=== PATIENT | female | born 1965 | race Caucasian/White ===

== ENCOUNTER 2021-06-01 09:41 | Outpatient (CLI) | payer MEDICAID, SELFPAY ==
--- NOTE | 2021-06-01 09:48 | MM_ITS ---
WS: [id number] BILATERAL DIGITAL SCREENING MAMMOGRAPHY WITH CAD CLINICAL INFORMATION: SCREENING HISTORY: Screening mammogram. No current complaints. COMPARISON: June 09, 2019 TECHNIQUE: Bilateral CC and MLO views. FINDINGS: The breasts are composed of heterogeneous fibroglandular density tissue, which can limit the detectio n of small underlying mass lesions. No suspicious mass, asymmetry, calcifications, or architectural d istortion. No evidence of malignancy. Punctate and lucent centered calcifications. MM/[place] [id number] IMPRESSION: BI-RADS: 2-Benign FOLLOW UP: 1 Year Follow-up Recommend return to annual screening mammography.
== END 2021-06-01 09:42 | disposition home or self-care (01) ==
LOC: RADSHAW 09:47
PROVIDERS: PCP Family Medicine; Visit Provider Family Medicine
DX: Z12.31 Encounter for screening mammogram for malignant neoplasm of breast (principal)
CPT/HCPCS: 77067

== ENCOUNTER 2021-06-06 08:54 | Outpatient (CLI) | payer MEDICAID, SELFPAY ==
--- NOTE | 2021-06-06 09:05 | CT_ITS ---
WS: [id number] LDCT LUNG CANCER SCREENING TECHNIQUE: Noncontrast CT of the chest with coronal and sagittal reformatted images. CLINICAL INFORMATION: NICOTINE DEPENDENCE, CIGARETTES COMPARISON: None. DLP: 51.81 mGy.cm DIvol: 1.[address] scans at [facility] use at least one of these dose optimization techniques: automat ed exposure control; mA and/or kV adjustment per patient size (includes targeted exams where dose is matched to clinical indication); or iterative reconstruction. FINDINGS: Lungs are well aerated. No acute pulmonary infiltrates. Noncalcified nodule left lower lobe measuring 5 mm. Coronary calcification. No mediastinal or hilar lymphadenopathy. Small esophageal hiatal hernia. Adre nal glands are normal. CT/CT lung screening [id number] IMPRESSION: LUNG-RADS: 3-Probably Benign FOLLOW UP: 6 Month LDCT
== END 2021-06-06 08:55 | disposition home or self-care (01) ==
PROVIDERS: PCP Family Medicine; Visit Provider Family Medicine
DX: Z12.2 Encounter for screening for malignant neoplasm of respiratory organs (principal); F17.210 Nicotine dependence, cigarettes, uncomplicated
CPT/HCPCS: 71271

== ENCOUNTER 2021-07-11 08:50 | Outpatient (CLI) | payer MEDICAID, SELFPAY ==
--- NOTE | 2021-07-11 09:04 | XR_ITS ---
WS: [id number] XR knee RT 3V* [id number] REASON FOR EXAM: RIGHT KNEE PAIN FINDINGS: Mild narrowing of the medial knee joint space without significant subchondral bone abnormality. Mild narrowing of the lateral knee joint space without significant subchondral bone abnormality. Significant narrowing of the patellofemoral joint space with large patellar and femoral condyle osteo phytes. XR/XR knee RT 3V* [id number] IMPRESSION: Osteoarthritis of the right knee, most severe in the patellofemoral joint space .
== END 2021-07-11 08:51 | disposition home or self-care (01) ==
LOC: RAD 08:56
PROVIDERS: PCP Family Medicine; Visit Provider Family Medicine
DX: M17.0 Bilateral primary osteoarthritis of knee (principal)
CPT/HCPCS: 73562

== ENCOUNTER → 2021-08-09 10:37 | Outpatient (BNVA) | payer MEDICAID, SELFPAY | PROVIDERS: PCP Family Medicine; Visit Provider Surgery | DX: Z20.822 Contact with and (suspected) exposure to COVID-19 (principal); Z11.52 Encounter for screening for COVID-19 | CPT/HCPCS: 87635 ==

== ENCOUNTER 2021-08-15 08:01 | Day surgery (SDC) | payer MEDICAID, SELFPAY ==
[2021-08-13 13:40] VITALS: BMI 29.0
--- NOTE | 2021-08-15 08:31 | ANES.PREANE2 ---
Pre-Anesthetic Assessment Pre-Anesthetic Assessment: Height/Weight: Height 1.68 m Weight 81.647 kg Proposed Procedure: Operation Date: 08/15/21 10:15 Proposed Procedures p Colonoscopy 69700 R19.7(Not Applicable) - Everton Johns MD Was Beta Layton taken within 24 hours: Yes Was Clonidine taken within 24 hours: N/A Social: Social History: Tobacco and No alcohol Exam: Pre-Anes Outpt Exam: alert, oriented x 3, clear to auscultation bilaterally and regular rate & rhythm Airway: Submandibular: WNL Cervical ROM: WNL MP: 2 Dentition: False Pulmonary: Pulmonary: Asthma and COPD CV/HEM: CV/HEM: HTN GI: GI: GERD Metabolic: Metabolic: Hyperlipidemia Anesthetic Plan: ASA status: 3 Anesthesia: MAC Risk of > 500 ml blood loss (7ml/kg in children): No PFSH Anesthesia PFSH: Family History Other Cancer Dementia Diabetes Lung disease Denies family history of CAD (coronary artery disease) Chronic kidney disease (CKD) Stroke Social History Smoking and tobacco status: current every day smoker Alcohol intake: never Lives independently: Yes Household members: children Data Anesthesia Cardiac Studies: No Data to Display
[2021-08-15 09:30] VITALS: BP 158/99; PULSE 75; RESP 16; TEMP 36.5; O2SAT 94
[2021-08-15] MEDS: sodium chloride 0.9% 1,000 ML 30 ML IV (09:30)
--- NOTE | 2021-08-15 10:21 | P.HP_ITS ---
Same Day Surgery H&P Indication for Procedure/HPI DATE OF PROCEDURE: August 15, 2021 CHIEF COMPLAINT/INDICATIONFOR SURGICAL PROCEDURE: Diarrhea PREOP DIAGNOSIS: Diarrhea PLANNED PROCEDRUE: Operation Date: 08/15/21 10:15 Proposed Procedures p Colonoscopy 14739 R19.7(Not Applicable) - Everton Johns MD 07/05/2021 This is a pleasant 56 years old female patient reports that she has been having nonbloody diarrhea for the past 6 months or so. Never had a colonoscopy before. She reports no sick contacts or ingestion of unhealthy meals or being on antibiotics or change in medication or recent travels. Patient is referred to my practice for colonoscopy. She reports that she never had her stools analyzed. 08/15/2021 Patient is coming today for colonoscopy ROS All systems have been reviewed negative except as per the above or per problem List Medications/Allergies* Home Medications Medication Instructions Recorded Confirmed Type albuterol sulfate 90 mcg/actuation 1 inh INHALATION QID 07/05/21 08/15/21 History aerosol inhaler alendronate 10 mg tablet 10 mg PO DAILY 07/05/21 08/15/21 History atorvastatin 20 mg tablet 20 mg PO DAILY 07/05/21 08/15/21 History brexpiprazole 3 mg tablet 3 mg PO DAILY 07/05/21 08/15/21 History budesonide-formoterol HFA 160 2 puff INHALATION BID 07/05/21 08/15/21 History mcg-4.5 mcg/actuation aerosol inhaler furosemide 40 mg tablet 40 mg PO DAILY 07/05/21 08/15/21 History gabapentin 600 mg tablet 600 mg PO DAILY 07/05/21 08/15/21 History hydroxyzine HCl 25 mg tablet 25 mg PO BID PRN 07/05/21 08/15/21 History lisinopril 10 mg tablet 20 mg PO DAILY 07/05/21 08/15/21 History metoprolol succinate 50 mg 50 mg PO DAILY 07/05/21 08/15/21 History tablet,extended release 24 hr montelukast 10 mg tablet 10 mg PO DAILY 07/05/21 08/15/21 History pantoprazole 40 mg tablet,delayed 40 mg PO DAILY 07/05/21 08/15/21 History release prazosin 2 mg capsule 2 mg PO BID 07/05/21 08/15/21 History sitagliptin 50 mg-metformin 1,000 1 tab PO BID 07/05/21 08/15/21 History mg tablet tiotropium bromide 2.5 2 puff INHALATION DAILY 07/05/21 08/15/21 History mcg/actuation mist for inhalation trazodone 50 mg tablet 50 mg PO DAILY 07/05/21 08/15/21 History Allergies/Adverse Reactions Allergy/AdvReac Type Severity Reaction Status Date / Time No Known Allergies Allergy Verified 08/15/21 10:22 Current Medications: Generic Name Dose Route Start Last Admin Trade Name Freq PRN Reason Stop Dose Admin Sodium Chloride 1,000 mls @ 30 mls/hr 08/15/21 09:00 08/15/21 09:30 Sodium Chloride 0.9% IV 08/16/21 08:59 30 mls/hr .Q24H CASSANDRA Administration Pertinent History/Comorbid Conditions* Family History (Updated 07/05/21 @ 08:28 by Patria Costa) Diabetes Dementia Lung disease Cancer Denies family history of CAD (coronary artery disease) Chronic kidney disease (CKD) Stroke Social History Smoking and tobacco status: current every day smoker Alcohol intake: never Lives independently: Yes Household members: children Pertinent Exam Findings alert, oriented x 3, regular rate & rhythm and procedure specific exam findings (Abdominal examination nontender nondistended soft) Recommendations Surgery/Procedure today (Colonoscopy with possible Biopsy) Coding Level of Care Code Acute Personnel Director for Asiya Dueñas
[2021-08-15 11:24] VITALS: BP 155/126; PULSE 101; RESP 18; TEMP 36.1; O2SAT 94
--- NOTE | 2021-08-15 11:31 | ANE.PACU2 ---
Inpatient post-anesthesia follow up: Airway intact: Yes Vital signs: Temperature 97.0 F Pulse Rate 101 Respiratory Rate 18 Blood Pressure 155/126 Pulse Oximetry 94 Oxygen Delivery Me thod Room Air Oxygen Flow Rate Fraction of Inspir ed Oxygen Hydration adequate: Yes Nausea and vomiting: No Pain level: 1 Mental status: Baseline
[2021-08-15 11:34] VITALS: BP 170/80; PULSE 89; RESP 18; O2SAT 95
[2021-08-15 12:40] LABS: Glucose Point of Care 136 mg/dL (70-110)
== END 2021-08-15 11:54 | disposition home or self-care (01) ==
PROVIDERS: PCP Family Medicine; Visit Provider Surgery
PROC: 0DJD8ZZ Inspection of Lower Intestinal Tract, Via Natural or Artificial Opening Endoscopic (ICD-10-PCS; CPT 45378; principal; 2021-08-15 10:15)
DX: R19.7 Diarrhea, unspecified (principal); K62.1 Rectal polyp; F17.200 Nicotine dependence, unspecified, uncomplicated
CPT/HCPCS: 36416; 45380; 82962; 88305; 96360; 96361; J2704; J7030

== ENCOUNTER → 2021-09-17 09:02 | Outpatient (BNVA) | payer MEDICAID, SELFPAY | PROVIDERS: PCP Family Medicine; Referring Provider Family Medicine; Visit Provider Specialist | DX: M25.561 Pain in right knee (principal); M25.562 Pain in left knee | CPT/HCPCS: 73560; 73565 ==

== ENCOUNTER 2022-01-01 14:34 | Outpatient (CLI) | payer MEDICAID, SELFPAY ==
--- NOTE | 2022-01-01 14:48 | CT_ITS ---
WS: [id number] CT CHEST TECHNIQUE: Noncontrast CT of the chest with coronal and sagittal reformatted images. CLINICAL INFORMATION: SOLITARY NODULE COMPARISON: CT June 06, 2021 DLP: 731.[address] scans at [facility] use at least one of these dose optimization techniques: automated e xposure control; mA and/or kV adjustment per patient size (includes targeted exams where dose is matc hed to clinical indication); or iterative reconstruction. FINDINGS: Stable 5 mm noncalcified nodule LEFT lower lobe measuring 5 mm. This is unchanged from previous. Slig ht subsegmental atelectasis in the lower lobes. No acute pulmonary infiltrates. No focal pneumonia or pleural fluid. No mediastinal or hilar lymphadenopathy. Coronary calcification. No axillary lymphadenopathy. Small esophageal hiatal hernia. Stable 2.8 cm LEFT hepatic cyst. Adrenal glands are normal. CT/CT chest wo con [id number] IMPRESSION: 1. Stable 5 mm noncalcified nodule LEFT lower lobe. Recommend 12 month follow- up. 2. No mediastinal or hilar lymphadenopathy. 3. Small esophageal hiatal hernia. 4. LEFT hepatic cyst measuring 2.8 cm appears stable from the lung screening C T but better seen today.
== END 2022-01-01 14:35 | disposition home or self-care (01) ==
LOC: RAD 14:40
PROVIDERS: PCP Family Medicine; Visit Provider Family Medicine
DX: R91.1 Solitary pulmonary nodule (principal); K44.9 Diaphragmatic hernia without obstruction or gangrene; K76.89 Other specified diseases of liver
CPT/HCPCS: 71250